=== PATIENT | male | born 1975 | race Caucasian/White ===

== ENCOUNTER → 2020-10-15 | Outpatient (CLI) | payer MEDICARE ==
[~2020-10-15] MED LIST: ATORVASTATIN CA40 MG PO; CLEOCIN HCL300 MG PO; NAPROSYN500 MG PO; NEURONTIN600 MG PO; PEPCID40 MG PO; PREDNISONE 20 M20 MG PO; SUBOXONE 8 MG-1 EACH SL; ZESTRIL/PRINIVI10 MG PO; ZOLOFT100 MG PO; ZYRTEC10 M3 PO
== END ==
LOC: KOH-I 13:45
DX: M51.16 Intervertebral disc disorders with radiculopathy, lumbar region (principal); M47.26 Other spondylosis with radiculopathy, lumbar region; M47.817 Spondylosis without myelopathy or radiculopathy, lumbosacral region; M51.27 Other intervertebral disc displacement, lumbosacral region; M48.061 Spinal stenosis, lumbar region without neurogenic claudication
CPT/HCPCS: 72148

== ENCOUNTER 2021-05-29 19:19 | Emergency (ER) | payer MEDICARE ==
[2021-05-29 20:31] LABS: HEMOGLOBIN 16.9 gm/dl (14.0-17.5); RED BLOOD COUNT 5.97 M/UL (4.20-5.50); WHITE BLOOD COUNT 14.7 K/UL (4.5-11.0)
[2021-05-29 20:35] LABS: BUN/CREATININE RATIO 11 (0-10)
[2021-05-29] MEDS ORDERED: ZITHROMAX1 GM PO (23:17)
== END 2021-05-29 23:20 | disposition home or self-care (01) ==
LOC: ER1 19:19
PROVIDERS: Physician Assistant
DX: J18.9 Pneumonia, unspecified organism (principal); I10 Essential (primary) hypertension; R06.02 Shortness of breath; R05.9 Cough, unspecified; F17.210 Nicotine dependence, cigarettes, uncomplicated; Z20.822 Contact with and (suspected) exposure to COVID-19; Z88.8 Allergy status to other drugs, medicaments and biological substances
CPT/HCPCS: 0240U; 71045; 80048; 81001; 82550; 82553; 83874; 83880; 84484; 85025; 85379; 93005; 99285

== ENCOUNTER 2021-07-30 16:17 | Emergency (ER) | payer MEDICARE ==
[~2021-07-30 16:17] MED LIST changes: +ZITHROMAX1 GM PO
[2021-07-30] MEDS ORDERED: HYDROCODON-ACE1 EAC2 PO (17:04)
[2021-07-30] MEDS ORDERED: CEPHALEXIN500 M1 PO (17:10)
[2021-07-30] MEDS ORDERED: BACTROBAN OINT22 GM EXT (17:10)
== END 2021-07-30 17:40 | disposition home or self-care (01) ==
LOC: ER1 16:17
DX: S61.532A Puncture wound without foreign body of left wrist, initial encounter (principal); F17.210 Nicotine dependence, cigarettes, uncomplicated; Z23 Encounter for immunization; I10 Essential (primary) hypertension; W26.8XXA Contact with other sharp object(s), not elsewhere classified, initial encounter
CPT/HCPCS: 73110; 90471; 90715; 96374; 96375; 99283; J0690; J2270; J2405

== ENCOUNTER → 2021-10-05 | Outpatient (CLI) | payer MEDICARE ==
[~2021-10-05] MED LIST changes: +BACTROBAN OINT22 GM EXT; +CEPHALEXIN500 M1 PO; +HYDROCODON-ACE1 EAC2 PO
== END ==
LOC: KOH-I 12:52
DX: E29.1 Testicular hypofunction (principal); L03.011 Cellulitis of right finger; R10.9 Unspecified abdominal pain; S61.210A Laceration without foreign body of right index finger without damage to nail, initial encounter
CPT/HCPCS: 73120; 74018

== ENCOUNTER → 2021-10-25 | Outpatient (CLI) | payer MEDICARE | LOC: RAD 18:18 | DX: R07.81 Pleurodynia (principal); R91.1 Solitary pulmonary nodule | CPT/HCPCS: 71111 ==